=== PATIENT | male | born 1985 | race Two or more races ===

== ENCOUNTER → 2024-10-18 | Emergency (ER) | payer OTHER ==
[~2024-10-18] VITALS: Ht 172.7 cm; Wt 88.5 kg
[~2024-10-18] MED LIST: 0.9 % SODIUM CHLORIDE 1,000 ML IV ONE; FAMOTIDINE/PF 20 MG/2 ML VIAL IV PUSH STA; INSULIN REGULAR, HUMAN 1,000 UNIT/10 ML UNITS IV STA; NEURONTIN800 MG PO; ONDANSETRON HCL 2 MG/ML VIAL IV STA; REMERON45 M1 PO
[2024-10-18 02:57] LABS: BASO % 1.6 % (0.1-1.2); EOS # 0.25 (0.04-0.54); EOS % 4.1 % (0.7-7.0); LYMPH # 2.82 (1.18-3.74); LYMPH % 46.2 % (19.3-53.1); MEAN PLATELET VOLUME 9.80 fl (9.4-12.4); MONO # 0.38 (0.24-0.82); MONO % 6.2 % (4.7-12.5); NEUT # 2.51 (1.56-6.13); NEUT % 41.2 % (34.0-71.1); RED CELL DISTRIBUTION WIDTH 13.1 % (11.6-14.4)
[2024-10-18 03:25] LABS: ALT/SGPT 28.0 U/L (12-78); AST/SGOT 22.0 U/L (15-37); BILIRUBIN TOTAL 0.37 mg/dL (0.3-1.2); BUN CREA RATIO 14.0 (7.0-25.0); CREATININE SERUM 0.91 mg/dL (0.70-1.30); GFR 92.27; GLOBULINA 3.6 G/DL (2.4-3.5); OSMOLALITY SERUM 296.0 MOSM/KG (275-295)
[2024-10-18 03:39] LABS: ABG PH 7.381 (7.35-7.45); BICARBONATE 22.8 mmol/l (23-25); o2 21 %
[2024-10-18 03:41] LABS: ABG PO2 78.5 mmHg (80-100)
[2024-10-18 03:52] LABS: GLUCOSE FASTING 359.0 mg/dL (65-100)
== END | disposition left against medical advice (07) ==
LOC: ER 02:13
PROVIDERS: General Practice
DX: E11.65 Type 2 diabetes mellitus with hyperglycemia (principal); Z79.4 Long term (current) use of insulin; R42 Dizziness and giddiness

== ENCOUNTER 2024-10-24 03:58 | Emergency (ER) | payer OTHER ==
[~2024-10-24] VITALS: Ht 170.2 cm; Wt 95.3 kg
[~2024-10-24 03:58] MED LIST changes: -0.9 % SODIUM CHLORIDE 1,000 ML IV ONE; -FAMOTIDINE/PF 20 MG/2 ML VIAL IV PUSH STA; -INSULIN REGULAR, HUMAN 1,000 UNIT/10 ML UNITS IV STA; -ONDANSETRON HCL 2 MG/ML VIAL IV STA
[2024-10-24] MEDS ORDERED: PROPANOLOL (04:07)
[2024-10-24] MEDS ORDERED: INSULIN (04:08)
[2024-10-24] MEDS ORDERED: ACID REDUCER20 M1 (04:08)
[2024-10-24] MEDS ORDERED: FAMOTIDINE/PF 20 MG/2 ML VIAL IV PUSH STA (04:25)
[2024-10-24] MEDS ORDERED: PROMETHAZINE HCL 50 MG/ML AMPUL IM STA (04:25)
[2024-10-24] MEDS ORDERED: PROMETHAZINE HCL 50 MG/ML AMPUL IM ONE (04:26)
[2024-10-24] MEDS ORDERED: FAMOTIDINE/PF 20 MG/2 ML VIAL ONE (04:26)
[2024-10-24] MEDS ORDERED: DEXTROSE 5 % AND 0.9 % NACL 1,000 ML IV ONE (04:30)
[2024-10-24 05:53] LABS: BASO % 0.8 % (0.1-1.2); EOS # 0.02 (0.04-0.54); EOS % 0.3 % (0.7-7.0); LYMPH # 1.48 (1.18-3.74); LYMPH % 24.1 % (19.3-53.1); MEAN PLATELET VOLUME 9.50 fl (9.4-12.4); MONO # 0.32 (0.24-0.82); MONO % 5.2 % (4.7-12.5); NEUT # 4.20 (1.56-6.13); NEUT % 68.6 % (34.0-71.1); RED CELL DISTRIBUTION WIDTH 13.4 % (11.6-14.4)
[2024-10-24] MEDS ORDERED: THIAMINE HCL 100 MG/ML 2 ML VIAL ONE (05:57)
[2024-10-24] MEDS ORDERED: THIAMINE HCL 100 MG/ML 2 ML VIAL IV STA (05:59)
[2024-10-24 06:14] LABS: ALT/SGPT 38.0 U/L (12-78); AST/SGOT 36.0 U/L (15-37); BILIRUBIN TOTAL 0.81 mg/dL (0.3-1.2); BILIRUBIN,CONJUGATED 0.21 mg/dL (0.0-0.2); BUN CREA RATIO 17.0 (7.0-25.0); CREATININE SERUM 0.65 mg/dL (0.70-1.30); GFR 136.05; GLOBULINA 4.1 G/DL (2.4-3.5); GLUCOSE FASTING 181.0 mg/dL (65-100); OSMOLALITY SERUM 276.0 MOSM/KG (275-295)
[2024-10-24 07:39] VITALS: BP 179/95; O2SAT 96
[2024-10-24] MEDS ORDERED: LORazepam 2 MG/ML VIAL IV STA (09:36)
[2024-10-24] MEDS ORDERED: MULTIVIT INFUSN,ADULT 4,VIT K 10 ML VIAL IV STA (10:06)
[2024-10-24] MEDS ORDERED: FOLIC ACID 1 MG TABLET PO STA (10:07)
[2024-10-24] MEDS ORDERED: MAGNESIUM SULFATE IN WATER 2 GM/50 ML PIGGYBAG IV STA (11:53)
== END 2024-10-24 14:30 | disposition home or self-care (01) ==
LOC: ER 03:58
PROVIDERS: General Practice
DX: F10.939 Alcohol use, unspecified with withdrawal, unspecified (principal); E11.9 Type 2 diabetes mellitus without complications; Z79.4 Long term (current) use of insulin

== ENCOUNTER 2024-11-01 09:13 | Emergency (ER) | payer OTHER ==
[~2024-11-01] VITALS: Ht 175.3 cm; Wt 81.6 kg
[~2024-11-01 09:13] MED LIST changes: +ACID REDUCER20 M1; +INSULIN; +PROPANOLOL
[2024-11-01] MEDS ORDERED: 0.9 % SODIUM CHLORIDE 1,000 ML IV STA (09:22)
[2024-11-01] MEDS ORDERED: FLUMAZENIL 0.5 MG/5 ML ML IV ONE (09:30)
[2024-11-01] MEDS ORDERED: NALOXONE HCL 0.4 MG/ML AMPUL IV ONE (09:30)
[2024-11-01] MEDS ORDERED: ACTIVATED CHARCOAL PO ONE (09:30)
[2024-11-01 10:16] LABS: BASO % 1.1 % (0.1-1.2); EOS # 0.09 (0.04-0.54); EOS % 1.1 % (0.7-7.0); LYMPH # 2.69 (1.18-3.74); LYMPH % 33.4 % (19.3-53.1); MEAN PLATELET VOLUME 10.60 fl (9.4-12.4); MONO # 0.92 (0.24-0.82); MONO % 11.4 % (4.7-12.5); NEUT # 4.23 (1.56-6.13); NEUT % 52.6 % (34.0-71.1); RED CELL DISTRIBUTION WIDTH 14.3 % (11.6-14.4)
[2024-11-01 10:45] LABS: ALT/SGPT 46.0 U/L (12-78); AST/SGOT 44.0 U/L (15-37); BILIRUBIN TOTAL 0.6 mg/dL (0.3-1.2); BUN CREA RATIO 9.0 (7.0-25.0); CREATININE SERUM 0.85 mg/dL (0.70-1.30); GFR 99.83; GLOBULINA 3.3 G/DL (2.4-3.5); OSMOLALITY SERUM 283.0 MOSM/KG (275-295)
[2024-11-01 10:46] LABS: GLUCOSE FASTING 255.0 mg/dL (65-100)
[2024-11-01 10:59] LABS: ABG PH 7.456 (7.35-7.45); ABG PO2 60.5 mmHg (80-100); BICARBONATE 28.1 mmol/l (23-25)
[2024-11-01 11:00] LABS: o2 21 %
[2024-11-01 11:20] LABS: COVID-19 AG NEGATIVE (NEGATIVE)
[2024-11-01 12:39] LABS: URINE APPEARANCE Clear; URINE BILIRRUBIN Negative (NEGATIVE); URINE BLOOD Negative; URINE COLOR Dark Yellow; URINE KETONE Trace (NEGATIVE); URINE LEUKOCYTE Negative; URINE NITRATE Negative; URINE UROBILINOGEN 0.2 E.U./dl
[2024-11-01 12:44] LABS: URINE BACTERIA 43.1 uL (0.0-1933); URINE RBC 2.0 uL (0.0-20.8)
[2024-11-01 12:58] LABS: COCAINE NEGATIVE (NEGATIVE); METHADONE NEGATIVE (NEGATIVE); OPIATES NEGATIVE (NEGATIVE); THC ( Cannabinoids) NEGATIVE (NEGATIVE)
[2024-11-01 13:04] LABS: URINE CAST 0.73 uL (0.0-1.40); URINE EPITHELIAL CELLS 0.9 uL (0.0-38.8); URINE GLUCOSE 250 MG/DL (NEGATIVE); URINE PROTEIN 100 (NEGATIVE); URINE WBC 1.3 uL (0.0-23.2)
[2024-11-01 15:15] VITALS: BP 143/92; O2SAT 96
[2024-11-01] MEDS ORDERED: MULTIVIT INFUSN,ADULT 4,VIT K 10 ML VIAL IV ONE (16:45)
[2024-11-01] MEDS ORDERED: THIAMINE HCL 100 MG/ML 2 ML VIAL IV ONE (16:45)
[2024-11-01] MEDS ORDERED: LORazepam 2 MG/ML VIAL IV ONE (16:45)
[2024-11-01] MEDS ORDERED: FOLIC ACID 5 MG/ML VIAL IV ONE (16:45)
== END 2024-11-01 20:37 | disposition home or self-care (01) ==
LOC: ER 09:13
PROVIDERS: Emergency Medicine
DX: F10.939 Alcohol use, unspecified with withdrawal, unspecified (principal); R07.89 Other chest pain; E11.9 Type 2 diabetes mellitus without complications; Z20.822 Contact with and (suspected) exposure to COVID-19

== ENCOUNTER 2024-11-27 09:41 | Emergency (ER) | payer OTHER ==
[~2024-11-27] VITALS: Ht 175.3 cm; Wt 86.2 kg
[2024-11-27] MEDS ORDERED: 0.9 % SODIUM CHLORIDE 1,000 ML IV STA ×3 (09:54→20:21)
[2024-11-27] MEDS ORDERED: CHLORDIAZEPOXIDE HCL 25 MG CAPSULE PO SCH (09:55)
[2024-11-27] MEDS ORDERED: THIAMINE HCL 100 MG/ML 2 ML VIAL IM ONE (10:00)
[2024-11-27] MEDS ORDERED: ONDANSETRON HCL 2 MG/ML VIAL IV ONE ×2 (10:30→13:45)
[2024-11-27] MEDS ORDERED: FAMOTIDINE/PF 20 MG/2 ML VIAL IV PUSH ONE (10:30)
[2024-11-27] MEDS ORDERED: LORazepam 2 MG/ML VIAL IV ONE (11:00)
[2024-11-27 11:01] LABS: BASO % 0.6 % (0.1-1.2); EOS # 0.01 (0.04-0.54); EOS % 0.1 % (0.7-7.0); LYMPH # 2.24 (1.18-3.74); LYMPH % 18.9 % (19.3-53.1); MEAN PLATELET VOLUME 9.10 fl (9.4-12.4); MONO # 0.63 (0.24-0.82); MONO % 5.3 % (4.7-12.5); NEUT # 8.84 (1.56-6.13); NEUT % 74.7 % (34.0-71.1); RED CELL DISTRIBUTION WIDTH 13.8 % (11.6-14.4)
[2024-11-27 11:26] LABS: ALT/SGPT 37.0 U/L (12-78); AST/SGOT 28.0 U/L (15-37); BILIRUBIN TOTAL 1.15 mg/dL (0.3-1.2); BUN CREA RATIO 8.0 (7.0-25.0); CREATININE SERUM 0.97 mg/dL (0.70-1.30); GFR 85.72; GLOBULINA 4.6 G/DL (2.4-3.5); OSMOLALITY SERUM 287.0 MOSM/KG (275-295)
[2024-11-27 11:29] LABS: GLUCOSE FASTING 341.0 mg/dL (65-100)
[2024-11-27] MEDS ORDERED: INSULIN REGULAR, HUMAN 1,000 UNIT/10 ML UNITS IV ONE (11:45)
[2024-11-27 14:34] LABS: URINE APPEARANCE Clear; URINE BILIRRUBIN Negative (NEGATIVE); URINE BLOOD Small; URINE COLOR Yellow; URINE LEUKOCYTE Negative; URINE NITRATE Negative; URINE UROBILINOGEN 0.2 E.U./dl
[2024-11-27 14:39] LABS: URINE BACTERIA 54.0 uL (0.0-1933); URINE CAST 4.25 uL (0.0-1.40); URINE EPITHELIAL CELLS 8.9 uL (0.0-38.8); URINE RBC 2.1 uL (0.0-20.8); URINE WBC 13.5 uL (0.0-23.2)
[2024-11-27 14:45] LABS: COCAINE NEGATIVE (NEGATIVE); METHADONE NEGATIVE (NEGATIVE); OPIATES NEGATIVE (NEGATIVE); THC ( Cannabinoids) POSITIVE (NEGATIVE)
[2024-11-27 15:09] LABS: URINE GLUCOSE >=1000 MG/DL (NEGATIVE); URINE KETONE >=160 (NEGATIVE); URINE MUCUS SCANT; URINE PROTEIN 300 (NEGATIVE)
[2024-11-27] MEDS ORDERED: THIAMINE HCL 100 MG/ML 2 ML VIAL IV STA (19:11)
[2024-11-27] MEDS ORDERED: LORazepam 2 MG/ML VIAL IV STA (19:12)
[2024-11-27 19:18] LABS: ABG PH 7.503 (7.35-7.45); ABG PO2 108.0 mmHg (80-100); BICARBONATE 20.8 mmol/l (23-25)
[2024-11-27] MEDS ORDERED: THIAMINE HCL 100 MG/ML 2 ML VIAL ONE (19:26)
[2024-11-27] MEDS ORDERED: LORazepam 2 MG/ML VIAL ONE (19:29)
[2024-11-27 20:12] LABS: o2 32 %
[2024-11-27] MEDS ORDERED: KETOROLAC TROMETHAMINE 30 MG VIAL IV STA (20:20)
[2024-11-27] MEDS ORDERED: INSULIN REGULAR, HUMAN 1,000 UNIT/10 ML UNITS SUBCUTANEO STA (20:21)
[2024-11-27] MEDS ORDERED: ONDANSETRON HCL 2 MG/ML VIAL IV STA (20:22)
[2024-11-27] MEDS ORDERED: PANTOPRAZOLE SODIUM 40 MG/VIAL VIAL IV PUSH STA (20:22)
[2024-11-27] MEDS ORDERED: FAMOtidine 10 MG/ML (4ML VIAL) IV PUSH STA (20:22)
[2024-11-27] MEDS ORDERED: ONDANSETRON HCL 2 MG/ML VIAL ONE (20:47)
[2024-11-27] MEDS ORDERED: KETOROLAC TROMETHAMINE 30 MG VIAL ONE (20:47)
[2024-11-27] MEDS ORDERED: FAMOTIDINE/PF 20 MG/2 ML VIAL ONE (20:48)
[2024-11-28] MEDS ORDERED: HYDROXYZINE PAM50 MG PO (03:24)
[2024-11-28 03:39] VITALS: BP 120/81; O2SAT 98
== END 2024-11-28 03:41 | disposition home or self-care (01) ==
LOC: ER
PROVIDERS: Emergency Medicine
DX: F10.20 Alcohol dependence, uncomplicated (principal)

== ENCOUNTER 2024-12-17 13:50 | Emergency (ER) | payer OTHER ==
[~2024-12-17] VITALS: Ht 172.7 cm; Wt 81.6 kg
[~2024-12-17 13:50] MED LIST changes: +HYDROXYZINE PAM50 MG PO
[2024-12-17] MEDS ORDERED: 0.9 % SODIUM CHLORIDE 1,000 ML IV ONE ×2 (16:30→23:30)
[2024-12-17] MEDS ORDERED: FAMOTIDINE/PF 20 MG/2 ML VIAL IV ONE (16:30)
[2024-12-17] MEDS ORDERED: ONDANSETRON HCL 2 MG/ML VIAL IV ONE ×2 (16:30→23:30)
[2024-12-17] MEDS ORDERED: THIAMINE HCL 100 MG TABLET PO ONE (16:30)
[2024-12-17] MEDS ORDERED: ONDANSETRON HCL 2 MG/ML VIAL ONE ×2 (16:35→23:35)
[2024-12-17] MEDS ORDERED: FAMOTIDINE/PF 20 MG/2 ML VIAL ONE (16:35)
[2024-12-17] MEDS ORDERED: THIAMINE HCL 100 MG/ML 2 ML VIAL ONE (17:32)
[2024-12-17 18:43] LABS: BASO % 1.0 % (0.1-1.2); EOS # 0.02 (0.04-0.54); EOS % 0.5 % (0.7-7.0); LYMPH # 1.75 (1.18-3.74); LYMPH % 43.1 % (19.3-53.1); MEAN PLATELET VOLUME 9.40 fl (9.4-12.4); MONO # 0.32 (0.24-0.82); MONO % 7.9 % (4.7-12.5); NEUT # 1.91 (1.56-6.13); NEUT % 47.0 % (34.0-71.1); RED CELL DISTRIBUTION WIDTH 13.6 % (11.6-14.4)
[2024-12-17 19:15] LABS: ALT/SGPT 28.0 U/L (12-78); AST/SGOT 30.0 U/L (15-37); BILIRUBIN TOTAL 0.76 mg/dL (0.3-1.2); BILIRUBIN,CONJUGATED 0.2 mg/dL (0.0-0.2); BUN CREA RATIO 11.0 (7.0-25.0); CREATININE SERUM 0.56 mg/dL (0.70-1.30); GFR 161.59; OSMOLALITY SERUM 281.0 MOSM/KG (275-295); PHOSPHOKINASE CREATININE 84.0 U/L (39-308)
[2024-12-17 19:23] LABS: GLUCOSE FASTING 270.0 mg/dL (65-100)
[2024-12-17 19:37] LABS: ABG PH 7.387 (7.35-7.45); ABG PO2 81.8 mmHg (80-100); BICARBONATE 17.5 mmol/l (23-25); o2 21 %
[2024-12-17] MEDS ORDERED: LORazepam 2 MG/ML VIAL IM ONE (23:30)
[2024-12-17] MEDS ORDERED: LORazepam 2 MG/ML VIAL ONE (23:38)
== END 2024-12-18 00:38 | disposition home or self-care (01) ==
LOC: ER 13:50
PROVIDERS: Emergency Medicine
DX: F10.139 Alcohol abuse with withdrawal, unspecified (principal); R10.9 Unspecified abdominal pain; E86.0 Dehydration; E11.65 Type 2 diabetes mellitus with hyperglycemia